=== PATIENT | male | born 1975 ===

== ENCOUNTER 2023-02-04 16:10 | Emergency (ER) | payer SELFPAY ==
[2023-02-04 16:31] VITALS: BP 156/75; PULSE 80; RESP 18; TEMP 37.1; O2SAT 97
--- NOTE | 2023-02-04 20:01 | PC.NURSE ---
no answer x1 at triage
== END 2023-02-04 16:40 | disposition left against medical advice (07) ==
LOC: ANHED 20:52
DX: S61.012A Laceration without foreign body of left thumb without damage to nail, initial encounter (principal); X58.XXXA Exposure to other specified factors, initial encounter
CPT/HCPCS: 99199